=== PATIENT | male | born 1970 | race Caucasian/White ===

== ENCOUNTER 2017-04-24 16:29 | Inpatient (IN) ==
[2017-04-24] MEDS ORDERED: LACTATED RINGERS 1,000 ML IV ONE (16:43)
[2017-04-24 17:19] LABS: Mean Cell Volume 88.5 fL (80.0-100.0); Mean Corpuscular HGB Conc 34.2 g/dL (31.0-36.0); Mean Corpuscular Hemoglobin 30.2 pg (26.0-34.0); Platelet Count 528 K/mcL (140-440); RBC 4.29 M/mcL (4.50-5.90); Red Cell Distribution Width 12.5 % (11.5-14.5)
--- NOTE | 2017-04-24 17:27 | Emergency Department Note ---
Fever HPI - General Chief Complaint: Fever Stated Complaint: Back pain, Fever Time Seen by Provider: 04/24/17 16:42 Source: patient, family, EMS Mode of arrival: EMS Limitations: no limitations, physical limitation - History of Present Illness HPI Narrative: This 46-year-old gentleman is brought in by ambulance and they were called out for a "sick call". When he arrived he stated that he was not able to feel his legs and he does have a history of low back pain, bulging disks but he is not considered an operative candidate. He has been doctoring with Dr. Shaw, he is on a pain contract with her and they have been slowly trying to get him off of pain medications but just in the last few days he's had cold-like symptoms with a cough, nonproductive and today he ran a high fever and his called the ambulance. He has a very bizarre affect and when he is touched anywhere he yells out in pain. A few times he started hyperventilating and then lapsing into an obtunded state which he came out of in a few seconds and his status states that he does do this when he is uncomfortable. Apparently he is on disability for low back pain and medical issues. Main complaint today is fever, worsening of his low back pain and cough. MD complaint: fever - Related Data Home Medications Medication Instructions Recorded Confirmed Aspirin [Kathi Chewable Aspirin] 81 mg PO DAILY 03/28/16 04/24/17 Atorvastatin [Lipitor] 10 mg PO HS 03/28/16 04/24/17 Cyclobenzaprine [Flexeril] 10 mg PO TID 03/28/16 04/24/17 Empagliflozin/Linagliptin 1 each PO DAILY 03/28/16 04/24/17 [Glyxambi 25 mg-5 mg Tablet] Fenofibrate [Lofibra] 160 mg PO DAILY 03/28/16 04/24/17 LORazepam [Ativan] 1 mg PO Q6HP PRN 03/28/16 04/24/17 Levothyroxine [Synthroid] 100 mcg PO DAILY 03/28/16 04/24/17 Methadone [Dolophine] 5 mg PO Q4 PRN 03/28/16 04/24/17 Methocarbamol [Robaxin] 500 mg PO TIDP PRN 03/28/16 04/24/17 Sertraline [Zoloft] 200 mg PO DAILY 03/28/16 04/24/17 oxyCODONE [OxyCONTIN] 5 mg PO Q6HP PRN 03/28/16 04/24/17 Allergies Allergy/AdvReac Type Severity Reaction Status Date / Time haloperidol AdvReac Severe Acute Verified 04/24/17 16:39 renal failure Review of Systems Limitations: ROS unobtainable due to patients medical condition Constitutional: Reports: fever, chills, weakness, night sweats Eyes: Denies: eye pain ENT ED: Denies: ear pain, throat pain Cardiovascular: Denies: chest pain Fever PMH - Past Medical History Attestation: Yes: The following information was validated with the patient. Medical history: Reports: diabetes, fibromyalgia, hyperlipidemia, thyroid disease, other (chronic low back pain) Surgical history ED: Reports: non-contributory Psychiatric history: Reports: anxiety, depression Family history: Reports: non-contributory - Social History smoking status: Current every day smoker Alcohol use: Reports: None Drug use: Reports: none Physical Exam - General Limitations: no limitations, physical limitation General appearance: alert, anxious, in distress - Head Head exam: atraumatic, normocephalic - Eye Eye exam: Present: normal appearance, PERRL, EOMI. Absent: conjunctival injection - ENT ENT exam: normal exam, normal oropharynx, mucous membranes moist, other ( Edentulous upper and lower) - Neck Neck exam: Present: normal inspection, full ROM. Absent: tenderness, meningismus - Chest Chest inspection: Present: normal inspection, symmetric chest wall rise, tenderness. Absent: abscess - Respiratory Respiratory exam: Present: normal lung sounds bilaterally. Absent: respiratory distress, wheezes - Cardiovascular Cardiovascular exam: Present: regular rate, normal heart sounds - Abdominal Exam Abdominal exam: Present: soft, normal bowel sounds. Absent: distention, tenderness - Extremities Exam Extremities exam: Present: other (Patient has his knees drawn up, we will extend his legs. Tender with any movement of his ,upper extremities and lower extremities.) - Back Exam Back exam: Present: CVA tenderness (R), CVA tenderness (L), paraspinal tenderness. Absent: vertebral tenderness - Neurological Exam Neurological exam: Present: alert, oriented X3, CN II-XII intact, motor sensory deficit, reflexes normal (nable to test reflexes, he does have s lowdoes have sensation to his lower le, appears symmetrical.) - Psychiatric Psychiatric exam: Present: agitated, anxious - Skin Skin exam: Present: warm, dry, diaphoresis Course Vital Signs Temperature 102.3 F H 04/24/17 16:31 Pulse Rate 76 04/24/17 16:31 Respiratory Rate 18 04/24/17 16:31 Blood Pressure 135/76 04/24/17 16:31 Pulse Oximetry (%) 100 04/24/17 16:31 Temperature 99.5 F H 04/24/17 18:48 Pulse Rate 65 04/24/17 17:31 Respiratory Rate 13 04/24/17 17:47 Blood Pressure 138/74 04/24/17 17:47 Pulse Oximetry (%) 99 04/24/17 17:31 Fever - MDM Narrative Medical decision making narrative: Pain was better after pain medication administration, chest x-ray showing bilateral pneumonia. Discussed hospital observation/admission with Dr. Beauchmap. He does state his back pain is improved, he is moving both lower extremities appropriately but does have musculoskeletal back pain. - Lab Data Result diagrams: 04/24/17 16:54 04/24/17 16:54 Lab Results 04/24/17 04/24/17 04/24/17 Range/Units 16:54 16:54 16:54 WBC 17.7 H (4.5-11.0) K/mcL RBC 4.29 L (4.50-5.90) M/mcL Hgb 13.0 L (13.5-16.5) g/dL Hct 37.9 L (41.0-55.0) % MCV 88.5 (80.0-100.0) fL MCH 30.2 (26.0-34.0) pg MCHC 34.2 (31.0-36.0) g/dL RDW 12.5 (11.5-14.5) % Plt Count 528 H (140-440) K/mcL MPV 7.5 (7.4-10.4) fL Total Counted 100 Seg Neutrophils % 74 (38-78) % Band Neutrophils % Not Reportable Lymphocytes % 20 (15-49) % Monocytes % (Manual) 5 (1-12) % Eosinophils % (Manual) 1 (0-7) % Platelet Estimate Increased A (NORMAL) RBC Morphology Normal (NORMAL) VBG Lactic Acid 2.2 (0.5-2.2) mmol/L Sodium 140 (133-145) mmol/L Potassium 4.2 (3.3-5.1) mmol/L Chloride 100 (96-108) mmol/L Carbon Dioxide 20 L (22-30) mmol/L Anion Gap 20.0 H (8-16) BUN 13 (6-20) mg/dl Creatinine 0.8 (0.7-1.2) mg/dl GFR Calculation 106 Glucose 116 H (70-105) mg/dL Calcium 9.4 (8.6-10.4) mg/dl Total Bilirubin 0.2 (0.0-1.0) mg/dL AST 26 (0-37) U/l ALT 20 (0-40) U/l Alkaline Phosphatase 52 (39-117) U/L C-Reactive Protein (0.0-0.8) mg/dl Total Protein 7.5 (5.9-8.4) gm/dL Albumin 3.9 (3.2-5.2) gm/dL Globulin 3.6 (2.2-3.7) gm/dL Albumin/Globulin Ratio 1.1 (1.0-2.3) Urine Color Urine Appearance Urine pH (5.0-9.0) Ur Specific [place] (1.000-1.035) Urine Protein (NEG) mg/dL Urine Glucose (UA) (NEG) mg/dL Urine Ketones (NEG) mg/dL Urine Occult Blood (<0.03) mg/dL Urine Nitrate (NEG) Urine Bilirubin (NEG) mg/dL Urine Urobilinogen (NEG) mg/dL Ur Leukocyte Esterase (NEG) /uL Urine RBC (0-1) /hpf Urine WBC (0-4) /hpf Ur Squamous Epith Cells (0-4) /hpf Urine Bacteria (0) /hpf Urine Mucus (0) /hpf Urine Sperm (ABSENT) /hpf Ur Culture Indicated? 04/24/17 04/24/17 Range/Units 16:54 17:51 WBC (4.5-11.0) K/mcL RBC (4.50-5.90) M/mcL Hgb (13.5-16.5) g/dL Hct (41.0-55.0) % MCV (80.0-100.0) fL MCH (26.0-34.0) pg MCHC (31.0-36.0) g/dL RDW (11.5-14.5) % Plt Count (140-440) K/mcL MPV (7.4-10.4) fL Total Counted Seg Neutrophils % (38-78) % Band Neutrophils % Lymphocytes % (15-49) % Monocytes % (Manual) (1-12) % Eosinophils % (Manual) (0-7) % Platelet Estimate (NORMAL) RBC Morphology (NORMAL) VBG Lactic Acid (0.5-2.2) mmol/L Sodium (133-145) mmol/L Potassium (3.3-5.1) mmol/L Chloride (96-108) mmol/L Carbon Dioxide (22-30) mmol/L Anion Gap (8-16) BUN (6-20) mg/dl Creatinine (0.7-1.2) mg/dl GFR Calculation Glucose (70-105) mg/dL Calcium (8.6-10.4) mg/dl Total Bilirubin (0.0-1.0) mg/dL AST (0-37) U/l ALT (0-40) U/l Alkaline Phosphatase (39-117) U/L C-Reactive Protein 12.4 H (0.0-0.8) mg/dl Total Protein (5.9-8.4) gm/dL Albumin (3.2-5.2) gm/dL Globulin (2.2-3.7) gm/dL Albumin/Globulin Ratio (1.0-2.3) Urine Color Yellow Urine Appearance Clear Urine pH 9.0 (5.0-9.0) Ur Specific [place] 1.014 (1.000-1.035) Urine Protein Neg (NEG) mg/dL Urine Glucose (UA) >=500 A (NEG) mg/dL Urine Ketones 5/tr A (NEG) mg/dL Urine Occult Blood Neg (<0.03) mg/dL Urine Nitrate Neg (NEG) Urine Bilirubin Neg (NEG) mg/dL Urine Urobilinogen 2.0 A (NEG) mg/dL Ur Leukocyte Esterase Neg (NEG) /uL Urine RBC 0 (0-1) /hpf Urine WBC < 1 (0-4) /hpf Ur Squamous Epith Cells 0 (0-4) /hpf Urine Bacteria 0 (0) /hpf Urine Mucus Few (0) /hpf Urine Sperm Present A (ABSENT) /hpf Ur Culture Indicated? No Disposition Pt seen by BRAID CUTTER/PA only: No Clinical Impression: Pneumonia Condition: Fair Referrals: Precious Shaw MD [Primary Care Provider] -
[2017-04-24] MEDS ORDERED: IBUPROFEN 600 MG TABLET PO ONE (17:32)
[2017-04-24] MEDS ORDERED: METHOCARBAMOL 1,000 MG/10 ML VIAL IV ONE (17:32)
[2017-04-24] MEDS ORDERED: ONDANSETRON 4 MG/2 ML VIAL IV ONE ×2 (17:33→19:12)
[2017-04-24 17:42] LABS: Eosinophils % (Manual) 1 % (0-7); Lymphocytes % 20 % (15-49); Monocytes % (Manual) 5 % (1-12); Platelet Estimate INCREASED (NORMAL); RBC Morphology NORMAL (NORMAL); Segmented Neutrophils % 74 % (38-78)
[2017-04-24 17:46] LABS: ALT/SGPT 20 U/l (0-40); Albumin 3.9 gm/dL (3.2-5.2); Albumin/Globulin Ratio 1.1 (1.0-2.3); Alkaline Phosphatase 52 U/L (39-117); Blood Urea Nitrogen 13 mg/dl (6-20)
[2017-04-24 18:18] LABS: Appearance,Urine CLEAR; Bacteria,Urine 0 /hpf (0); Bilirubin,Urine NEG (NEG); Color,Urine YELLOW; Glucose,Urine (UA) >=500 mg/dL (NEG); Leukocyte Esterase,Urine NEG /uL (NEG); Mucus,Urine FEW /hpf (0); Nitrate,Urine NEG (NEG); Protein,Urine NEG (NEG); Specific Gravity,Urine 1.014 (1.000-1.035); Sperm,Urine PRESENT /hpf (ABSENT); Urine Blood NEG mg/dL (<0.03); Urine RBC 0 /hpf (0-1); Urine Squamous Epithelial Cell 0 /hpf (0-4); Urine WBC < 1 /hpf (0-4)
[2017-04-24] MEDS: HYDROmorphone 2 MG/ML SYRINGE IV PRN ×3 (18:20→22:23)
--- NOTE | 2017-04-24 18:21 | XRay Report ---
HISTORY: Reason for Exam:cough , fever and pain radiating to the back FINDINGS: Patient has bilateral pneumonia with the greatest involvement located centrally in the right lung. There is mild involvement central in the left lung. No pleural effusion is present and there is no apparent adenopathy. The heart size is normal. The pneumonia is a new finding since 06/27/09. IMPRESSION: Bilateral pneumonia Interpreted and Authenticated by: Jagdish Pham 04/24/17
[2017-04-24] MEDS ORDERED: cefTRIAXone 1 GM in DEXTROSE 5% IN WATER 50 ML IV ONE (19:11)
[2017-04-24] MEDS ORDERED: AZITHROMYCIN 500 MG in DEXTROSE 5% IN WATER 250 ML IV ONE (19:11)
[2017-04-24] MEDS ORDERED: LORazepam 1 MG TABLET PO PRN ×2 (20:22→21:21)
[2017-04-24] MEDS ORDERED: METHOCARBAMOL 500 MG TABLET PO PRN (20:22)
[2017-04-24] MEDS ORDERED: METHADONE 5 MG TABLET PO PRN (20:22)
[2017-04-24] MEDS ORDERED: oxyCODONE HCL 5 MG TABLET PO PRN (20:45)
[2017-04-24] MEDS ORDERED: CYCLOBENZAPRINE 10 MG TABLET PO SCH (21:00)
[2017-04-24] MEDS ORDERED: ATORVASTATIN 20 MG TABLET PO SCH (21:00)
--- NOTE | 2017-04-24 21:14 | Internal Med History&Physical ---
Medical - H&P: HPI Patient information: Note initiated : 04/24/17 at 9:06 pm Service Date, if different from initiated Date: [] Patient: Guanako Rothman a 46 y/o M admitted on for Back pain, Fever. Chief Complaint: [] History of present illness: Mr. Rothman is a 46 year old Male with h/o dm, htn, hld, chr back pain, presented to the ER with complaints of not feeling well x 7-10 days. The patient recently had a in the family. He was more withdrawn than usual. He reports that approximately a week ago he started to have weakness, fever and chills associated with rigors and sweating. This has been getting worse over the period, he has been taking otc meds for same with some what intermittent relief. The patient over last few days also has developed cough with clear sputum, and increased malaise and increased pain overall. Since yesterday he was getting worse with worsening symptoms, nausea and vomiting. He had significant pain, weakness in lower extermities and therefore came to the ER today The patient also repots some headache, worsening chr back pain, and poor appetite IN the ER on presentation he was febrile to 102, hr 94, bp 131/72, oxygen sat 99 on RA CXR showed bilateral pneumonia, WBC count was elevated at 17K crp elevated 12.4, lactic acid 2.2, ua with elevated glucose adn trace ketones. The patient was therefore admitted to the hospital for furtgher management. All systems: reviewed and no additional remarkable complaints except as stated ( as per hpi) Medical - H&P: PMH Medical history: DM HTN HLD chr pain gall stone pancreatitis DM neuropathy Surgical history: cholecystectomy Family history: reviewed and not pertinent Social history: smoker no etoh no recreational drugs lives with Medical - H&P: Meds Home Medications Medication Instructions Recorded Confirmed Type Aspirin [Kathi Chewable Aspirin] 81 mg PO DAILY 03/28/16 04/24/17 History Atorvastatin [Lipitor] 10 mg PO HS 03/28/16 04/24/17 History Cyclobenzaprine [Flexeril] 10 mg PO TID 03/28/16 04/24/17 History Empagliflozin/Linagliptin 1 each PO DAILY 03/28/16 04/24/17 History [Glyxambi 25 mg-5 mg Tablet] Fenofibrate [Lofibra] 160 mg PO DAILY 03/28/16 04/24/17 History LORazepam [Ativan] 1 mg PO Q6HP PRN 03/28/16 04/24/17 History Levothyroxine [Synthroid] 100 mcg PO DAILY 03/28/16 04/24/17 History Methadone [Dolophine] 5 mg PO Q4 PRN 03/28/16 04/24/17 History Methocarbamol [Robaxin] 500 mg PO TIDP PRN 03/28/16 04/24/17 History Sertraline [Zoloft] 200 mg PO DAILY 03/28/16 04/24/17 History oxyCODONE [OxyCONTIN] 5 mg PO Q6HP PRN 03/28/16 04/24/17 History Allergies Allergy/AdvReac Type Severity Reaction Status Date / Time haloperidol AdvReac Severe Acute Verified 04/24/17 16:39 renal failure Medical - H&P: Exam - Constitutional Vitals: Temp Pulse Resp BP Pulse Ox 99.5 F H 78 15 118/71 94 04/24/17 18:48 04/24/17 21:01 04/24/17 21:01 04/24/17 21:01 04/24/17 21:01 Exam: GENERAL: The patient is a well-developed, well-nourished in mild apparent distress. Is alert and oriented x3. VITAL SIGNS: Reviewed and as noted elsewhere. HEENT: Head is normocephalic and atraumatic. Extraocular muscles are intact. Pupils are equal, round, and reactive to light. Nares appeared normal. Mouth appears any without lesions. Mucous membranes are dry NECK: Normal to inspection, Supple, No lymphadenopathy or thyromegaly. LUNGS: Air entry equal on both sides, no wheezing, crackles or rhonchi noted. No accessory muscles of respiration HEART: Regular rate and rhythm normal, S1 and S2 heard, no Gallop, S3 or Rub Noted, No Gross murmur heard. ABDOMEN: Soft, nontender, and nondistended. Positive bowel sounds. No hepatosplenomegaly was noted. EXTREMITIES: No cyanosis, clubbing, rash, lesions or edema. NEUROLOGIC: Cranial nerves II through XII are grossly intact. Motor and Sensory System Grossly Intact PSYCHIATRIC: some what agitated SKIN: No ulceration or wounds noted, No jaundice, No rash noted. Medical - H&P: Reslt - Labs CBC & Chem 7: 04/24/17 16:54 04/24/17 16:54 Labs: Short CBC 04/24/17 Range/Units 16:54 WBC 17.7 H (4.5-11.0) K/mcL Hgb 13.0 L (13.5-16.5) g/dL Hct 37.9 L (41.0-55.0) % Plt Count 528 H (140-440) K/mcL BMP 04/24/17 16:54 Sodium 140 Potassium 4.2 Chloride 100 Carbon Dioxide 20 L BUN 13 Creatinine 0.8 Glucose 116 H Calcium 9.4 Liver Function 04/24/17 Range/Units 16:54 Total Bilirubin 0.2 (0.0-1.0) mg/dL AST 26 (0-37) U/l ALT 20 (0-40) U/l Alkaline Phosphatase 52 (39-117) U/L Albumin 3.9 (3.2-5.2) gm/dL Urine 04/24/17 Range/Units 17:51 Urine Color Yellow Urine Appearance Clear Urine pH 9.0 (5.0-9.0) Ur Specific [place] 1.014 (1.000-1.035) Urine Protein Neg (NEG) mg/dL Urine Glucose (UA) >=500 A (NEG) mg/dL Medical - H&P: A/P (1) Pneumonia Current visit: Yes Status: Acute - Narrative A/P Narrative: A/P Community Acquired Pneumonia: iv rocephin and iv zithromax, mari pna on cxr , cultuers sent, check influenza, mycoplasma and urine legionella. Sepsis: due to pna, but lactic is nromal range, bp stable, hr stable, on room air, IV Fluids and IV antibiotics for now. DM Sliding scale insulin for now. HTN: monitor bp meds, resume home meds in AM hold if bp drops HLD: continue statin Chr pain: on pain contract with Dr Shaw, resume home meds, prn dilaudid IV Anxiety: resume home meds , or lorazepam and zoloft DVT: heparin sq Diet carb consistent. Full code
[2017-04-24] MEDS ORDERED: ONDANSETRON 4 MG/2 ML VIAL IV PRN (21:21)
[2017-04-24] MEDS ORDERED: NALOXONE HCL 0.4 MG/ML VIAL IV PRN (21:21)
[2017-04-24] MEDS ORDERED: HYDROmorphone 2 MG/ML SYRINGE IV PRN (21:21)
[2017-04-24] MEDS ORDERED: cefTRIAXone 2 GM in DEXTROSE 5% IN WATER 50 ML IV SCH (21:21)
[2017-04-24] MEDS ORDERED: DEXTROSE 50% 50 ML VIAL IV PRN (21:21)
[2017-04-24] MEDS ORDERED: DEXTROSE 31 GM ORAL.SUSP PO PRN (21:21)
[2017-04-24] MEDS ORDERED: ALBUTEROL SULFATE 2.5 MG/3 ML NEBULIZER NEB PRN (21:21)
[2017-04-24] MEDS ORDERED: cefTRIAXone 1 GM VIAL ONE (22:07)
[2017-04-24] MEDS: METHOCARBAMOL 500 MG TABLET PO PRN (22:22)
[2017-04-24] MEDS: oxyCODONE HCL 5 MG TABLET PO PRN (22:22)
[2017-04-24] MEDS: METHADONE 5 MG TABLET PO PRN (22:22)
[2017-04-24] MEDS: 0.9 % SODIUM CHLORIDE 1,000 ML IV SCH (22:24)
[2017-04-24] MEDS: HEPARIN 5,000 UNIT/ML VIAL SQ SCH (23:10)
[2017-04-24] MEDS: 0.9 % SODIUM CHLORIDE 10 ML SYRINGE IV SCH (23:11)
[2017-04-24] MEDS: ATORVASTATIN 20 MG TABLET PO SCH (23:11)
[2017-04-25] MEDS: ACETAMINOPHEN 325 MG TABLET PO PRN ×2 (02:46→14:06)
[2017-04-25] MEDS: HYDROmorphone 2 MG/ML SYRINGE IV PRN ×6 (02:46→23:08)
[2017-04-25] MEDS: oxyCODONE HCL 5 MG TABLET PO PRN ×4 (04:15→23:24)
[2017-04-25] MEDS: METHADONE 5 MG TABLET PO PRN ×2 (04:16→08:25)
[2017-04-25] MEDS: 0.9 % SODIUM CHLORIDE 10 ML SYRINGE IV SCH ×2 (05:57→13:42)
[2017-04-25 06:33] LABS: Basophils # (Auto) 0 K/mcL (0.0-0.3); Basophils % (Auto) 0.2 % (0.0-2.0); Eosinophils # (Auto) 0.1 K/mcL (0.0-0.7); Eosinophils % (Auto) 0.7 % (0.0-7.0); Granulocytes % (Auto) 77.3 % (38.0-78.0); Lymphocytes # (Auto) 3.2 K/mcL (1.5-4.8); Lymphocytes % (Auto) 16.5 % (15.5-49.0); Mean Cell Volume 89.5 fL (80.0-100.0); Mean Corpuscular HGB Conc 34.4 g/dL (31.0-36.0); Mean Corpuscular Hemoglobin 30.7 pg (26.0-34.0); Monocytes % (Auto) 5.3 % (1.0-12.0); Platelet Count 394 K/mcL (140-440); RBC 3.53 M/mcL (4.50-5.90); Red Cell Distribution Width 12.8 % (11.5-14.5)
[2017-04-25 06:57] LABS: ALT/SGPT 15 U/l (0-40); Albumin 3.1 gm/dL (3.2-5.2); Albumin/Globulin Ratio 1.1 (1.0-2.3); Alkaline Phosphatase 45 U/L (39-117); Bilirubin,Direct < 0.2 mg/dL (0.0-0.3); Blood Urea Nitrogen 13 mg/dl (6-20); Gamma Glutamyl Transpeptidase 27 U/L (8-61); Magnesium 1.9 mg/dL (1.6-2.5)
[2017-04-25] MEDS: INSULIN LISPRO 1 UNIT/0.01 ML UNIT SQ SCH ×4 (07:04→20:20)
[2017-04-25] MEDS: LEVOTHYROXINE 100 MCG TABLET PO SCH ×2 (07:11→07:14)
[2017-04-25] MEDS ORDERED: LEVOTHYROXINE 100 MCG TABLET PO SCH (07:30)
[2017-04-25] MEDS: CYCLOBENZAPRINE 10 MG TABLET PO SCH ×3 (08:24→20:17)
[2017-04-25] MEDS: HEPARIN 5,000 UNIT/ML VIAL SQ SCH ×2 (08:26→20:20)
[2017-04-25] MEDS: 0.9 % SODIUM CHLORIDE 1,000 ML IV SCH ×3 (08:29→19:43)
[2017-04-25] MEDS ORDERED: ASPIRIN 81 MG TAB.CHEW PO SCH ×2 (09:00→21:00)
[2017-04-25] MEDS ORDERED: SERTRALINE 50 MG TABLET PO SCH ×2 (09:00→21:00)
[2017-04-25] MEDS ORDERED: FENOFIBRATE 43 MG CAPSULE PO SCH ×2 (09:00→21:00)
[2017-04-25] MEDS: METHOCARBAMOL 500 MG TABLET PO PRN ×2 (09:18→17:44)
[2017-04-25] MEDS: METHADONE 5 MG TABLET PO SCH ×3 (11:58→20:15)
[2017-04-25] MEDS: cefTRIAXone 2 GM in DEXTROSE 5% IN WATER 50 ML IV SCH (11:58)
[2017-04-25] MEDS: AZITHROMYCIN 250 MG in DEXTROSE 5% IN WATER 250 ML IV SCH (12:38)
--- NOTE | 2017-04-25 13:32 | Internal Med Progress Note ---
Medical - PN: Subj Patient information: Note initiated : 04/25/17 at 1:30 pm Service Date, if different from initiated Date: [] Patient: Guanako Rothman a 46 y/o M admitted on 04/24/17 for Back Pain, Fever/ Pneumonia, Sepsis. Chief Complaint: [] Interval history: Mr. Rothman is a 46 year old Male with h/o dm, htn, hld, chr back pain, presented to the ER with complaints of not feeling well x 7-10 days. The patient recently had a in the family. He was more withdrawn than usual. He reports that approximately a week ago he started to have weakness, fever and chills associated with rigors and sweating. This has been getting worse over the period, he has been taking otc meds for same with some what intermittent relief. The patient over last few days also has developed cough with clear sputum, and increased malaise and increased pain overall. Since yesterday he was getting worse with worsening symptoms, nausea and vomiting. He had significant pain, weakness in lower extermities and therefore came to the ER today The patient also repots some headache, worsening chr back pain, and poor appetite IN the ER on presentation he was febrile to 102, hr 94, bp 131/72, oxygen sat 99 on RA CXR showed bilateral pneumonia, WBC count was elevated at 17K crp elevated 12.4, lactic acid 2.2, ua with elevated glucose adn trace ketones. The patient was therefore admitted to the hospital for furtgher management. 02/23: Patient seen examined, by the bed side, he wants to go home as he feels his pain is not as controlled here as its at home. He is on his home pain medications here and IV dilaudid prn. The patient overall does not feel much better than yesterday, but is afebrile now. his wbc count has trended up today. He remains on rocephin and zithromax for antibiotic coverage. cultures neg so far. He refused sliding scale insulin and wants to take his home oral diabetes medication. Pertinent ROS: Denies headache, dizziness Denies chest pain, palpitations present cough and shortness of breath Denies abdominal pain, nausea or vomiting. - Constitutional Vitals: Vital Signs Temp Pulse Resp BP Pulse Ox 97.1 F 81 18 106/69 96 04/25/17 11:01 04/25/17 07:20 04/25/17 11:01 04/25/17 11:01 04/25/17 11:01 Period Temp Pulse Resp BP Sys/Liao Pulse Ox Last 24 Hr 96.5 F-102.3 F 65-81 10-22 93-148/53-79 94-100 Intake and Output 04/24/17 04/25/17 04/25/17 21:59 05:59 13:59 Intake Total 1300 / 1300 400 / 400 1480 / 1480 Output Total 475 / 475 Balance 1300 / 1300 400 / 400 1005 / 1005 Weight 168 lb Intake & Output: Intake & Output 04/24/17 04/25/17 04/25/17 21:59 05:59 13:59 Intake Total 1300 / 1300 400 / 400 1480 / 1480 Output Total 475 / 475 Balance 1300 / 1300 400 / 400 1005 / 1005 Weight 168 lb Intake: IV 1300 / 1300 1000 / 1000 Sodium Chloride 0.9% 1,000 ml @ 1000 / 1000 100 mls/hr IV .Q10H [facility] Rx#: [id number] Zithromax 500 mg In Dextrose 5% 250 / 250 in Water 250 ml @ 250 mls/hr IV ONCE ONE Rx#:[id number] Lactated Ringers 1,000 ml @ 1000 / 1000 Wide Open IV BOLUS ONE Rx#: [id number] Rocephin 1 gm In Dextrose 5% in 50 / 50 Water 50 ml @ 100 mls/hr IV ONCE ONE Rx#:[id number] Oral 400 / 400 480 / 480 Output: Void Amount 475 / 475 Other: Meal sandwich, cheese sticks Lunch Percent of Meal Consumed 100% 100% Feeding Ability Independent Independent # Voids 2 Exam: Constitutional; Afebrile, cooperative, alert, not in distress. Eyes- No icterus, , No periorbital swelling Ears- Ext ear normal, hearing normal to conversation. Neck- Midline trachea, supple Respiratory system: Air Entry equal on both sides, No crackles or wheezing, no rhonchi. CVS- Rate rhythm regular, S1,S2 heard, no gallop, no rub. Abdomen- Soft nontender abdomen, no organomegaly, no tenderness, no guarding or rigidity, [employer] ADDED ASSESSOR- AOOx3, moving all extremities, no gross focal deficit noted. Medical - PN: Obj Da - Labs CBC & Chem 7: 04/25/17 04:20 04/25/17 04:20 Labs: Abnormal Lab Results 04/25/17 04/25/17 04/24/17 04:20 04:20 17:51 WBC 19.5 H RBC 3.53 L Hgb 10.9 L Hct 31.6 L Plt Count Gran # 15.1 H [place] # (Auto) 1.0 H Platelet Estimate Carbon Dioxide 21 L Anion Gap Creatinine 0.6 L Glucose 108 H Calcium 8.4 L Lactate Dehydrogenase 374 H C-Reactive Protein Albumin 3.1 L Triglycerides 184 H Urine Glucose (UA) >=500 A Urine Ketones 5/tr A Urine Urobilinogen 2.0 A Urine Sperm Present A 04/24/17 04/24/17 04/24/17 16:54 16:54 16:54 WBC 17.7 H RBC 4.29 L Hgb 13.0 L Hct 37.9 L Plt Count 528 H Gran # [place] # (Auto) Platelet Estimate Increased A Carbon Dioxide 20 L Anion Gap 20.0 H Creatinine Glucose 116 H Calcium Lactate Dehydrogenase C-Reactive Protein 12.4 H Albumin Triglycerides Urine Glucose (UA) Urine Ketones Urine Urobilinogen Urine Sperm Meds: Medications Acetaminophen (Tylenol) 650 mg PO Q6HP PRN PRN Reason: PAIN/FEVER > 101 Last Admin: 04/25/17 02:46 Dose: 650 mg Albuterol Sulfate (Ventolin) 2.5 mg NEB Q2HP PRN PRN Reason: Shortness Of Breath Aspirin (Aspirin) 81 mg PO HS [facility] Atorvastatin Calcium (Lipitor) 10 mg PO HS [facility] Last Admin: 04/24/17 23:11 Dose: Not Given Cyclobenzaprine HCl (Flexeril) 10 mg PO TID [facility] Last Admin: 04/25/17 08:24 Dose: 10 mg Dextrose (Dextrose 50%) 0 ml IV UD PRN PRN Reason: Hypoglycemia Diagnostic Test (Pha) (Accu-Chek) 1 each FS ACHS [facility] Last Admin: 04/25/17 11:05 Dose: 1 each Fenofibrate (Antara) 129 mg PO HS [facility] Glucose (Insta-Glucose) 15 gm PO PRN PRN PRN Reason: Hypoglycemia Heparin Sodium (Porcine) (Heparin) 5,000 unit SQ Q12 [facility] Last Admin: 04/25/17 08:26 Dose: Not Given Hydromorphone HCl (Dilaudid) 0.5 mg IV Q1HP PRN PRN Reason: Pain Last Admin: 04/25/17 09:18 Dose: 0.5 mg Hydromorphone HCl (Dilaudid) 0.5 mg IV Q2HP PRN PRN Reason: Pain Sodium Chloride (Sodium Chloride 0.9%) 1,000 mls @ 100 mls/hr IV .Q10H [facility] Stop: 04/26/17 03:20 Last Admin: 04/25/17 08:29 Dose: 100 mls/hr Ceftriaxone Sodium 2 gm/ (Dextrose) 50 mls @ 100 mls/hr IV Q24H [facility] Last Admin: 04/25/17 11:58 Dose: 100 mls/hr Azithromycin 250 mg/ Dextrose 250 mls @ 250 mls/hr IV Q24H [facility] Stop: 04/28/17 13:59 Last Admin: 04/25/17 12:38 Dose: 250 mls/hr Insulin Human Lispro (Humalog) 0 unit SQ ACHS [facility] PRN Reason: Protocol Last Admin: 04/25/17 11:06 Dose: Not Given Levothyroxine Sodium (Synthroid) 100 mcg PO QAMAC [facility] Last Admin: 04/25/17 07:14 Dose: Not Given Lorazepam (Ativan) 1 mg PO Q6HP PRN PRN Reason: Anxiety Methadone HCl (Dolophine) 5 mg PO Q4 [facility] Last Admin: 04/25/17 11:58 Dose: 5 mg Methocarbamol (Robaxin) 500 mg PO TIDP PRN PRN Reason: Pain Last Admin: 04/25/17 09:18 Dose: 500 mg Naloxone HCl (Narcan) 0.1 mg IV Q2MIN PRN PRN Reason: Opiate Reversal Ondansetron HCl (Zofran) 4 mg IV Q6HP PRN PRN Reason: Nausea And Vomiting Oxycodone HCl (Roxicodone) 5 mg PO Q6HP PRN PRN Reason: Pain Last Admin: 04/25/17 11:02 Dose: 5 mg Empagliflozin/Linagliptin [ Glyxambi 25 Mg-5 Mg Tab 1 dose PO HS [facility] Sertraline HCl (Zoloft) 200 mg PO HS [facility] Sodium Chloride (Saline Flush) 10 ml IV Q8 [facility] Last Admin: 04/25/17 05:57 Dose: Not Given Medical - PN: A/P - Time Spent With Patient Total time spent is greater than 50% in coordination of care (as documented) at patient's floor/unit and/or counseling patient: (1) Pneumonia Status: Acute Current Visit: Yes - Narrative A/P Narrative: A/P Community Acquired Pneumonia: iv rocephin and iv zithromax, mari pna on cxr , cultuers sent, flu neg, mycoplasma neg, legionella pending. Sepsis: improving, bp low normal ,lactate normal, afebrile now, but wbc uptrending. DM home oral medication resume, d/c sliding scale at patients request. HTN: monitor bp meds, continue to hold bp medication. HLD: continue statin Chr pain: on pain contract with Dr Shaw, resumed home meds, prn dilaudid IV, will give methoadone q4h scheduled to help manage pain better, oxycodone dilaudid will remain prn. Anxiety: resume home meds , or lorazepam and zoloft DVT: heparin sq Diet carb consistent. Full code Medical - PN: Qual - Stroke Symptom Onset Unknown: No - VTE Deep Vein Thrombosis/Pulmonary Embolism Present on Admission: No
[2017-04-25] MEDS ORDERED: AZITHROMYCIN 250 MG in DEXTROSE 5% IN WATER 250 ML IV SCH (20:15)
[2017-04-25] MEDS: ATORVASTATIN 20 MG TABLET PO SCH (20:17)
[2017-04-25] MEDS ORDERED: LINAGLIPTIN PO SCH (21:00)
[2017-04-25] MEDS ORDERED: EMPAGLIFLOZIN PO SCH (21:00)
[2017-04-26] MEDS: METHOCARBAMOL 500 MG TABLET PO PRN (00:03)
[2017-04-26] MEDS: METHADONE 5 MG TABLET PO SCH ×4 (00:03→12:18)
[2017-04-26] MEDS: 0.9 % SODIUM CHLORIDE 10 ML SYRINGE IV SCH ×2 (00:58→05:47)
[2017-04-26] MEDS: oxyCODONE HCL 5 MG TABLET PO PRN ×2 (05:30→11:19)
[2017-04-26] MEDS: HYDROmorphone 2 MG/ML SYRINGE IV PRN ×4 (05:46→12:22)
[2017-04-26 06:09] LABS: Basophils # (Auto) 0 K/mcL (0.0-0.3); Basophils % (Auto) 0.3 % (0.0-2.0); Eosinophils # (Auto) 0.4 K/mcL (0.0-0.7); Eosinophils % (Auto) 2.6 % (0.0-7.0); Granulocytes % (Auto) 61.4 % (38.0-78.0); Lymphocytes # (Auto) 4.4 K/mcL (1.5-4.8); Lymphocytes % (Auto) 29.6 % (15.5-49.0); Mean Cell Volume 89.8 fL (80.0-100.0); Mean Corpuscular HGB Conc 33.4 g/dL (31.0-36.0); Monocytes # (Auto) 0.9 K/mcL (0.1-0.9); Monocytes % (Auto) 6.1 % (1.0-12.0); Platelet Count 459 K/mcL (140-440); RBC 3.74 M/mcL (4.50-5.90)
[2017-04-26 06:12] LABS: ALT/SGPT 18 U/l (0-40); Albumin 3.1 gm/dL (3.2-5.2); Alkaline Phosphatase 42 U/L (39-117); Bilirubin,Direct < 0.2 mg/dL (0.0-0.3); Blood Urea Nitrogen 11 mg/dl (6-20); Gamma Glutamyl Transpeptidase 30 U/L (8-61); Uric Acid 3.5 mg/dL (2.5-8.0)
[2017-04-26] MEDS: INSULIN LISPRO 1 UNIT/0.01 ML UNIT SQ SCH ×2 (07:59→11:22)
[2017-04-26] MEDS: LEVOTHYROXINE 100 MCG TABLET PO SCH (08:00)
[2017-04-26] MEDS: CYCLOBENZAPRINE 10 MG TABLET PO SCH (08:50)
[2017-04-26] MEDS: cefTRIAXone 2 GM in DEXTROSE 5% IN WATER 50 ML IV SCH (08:50)
[2017-04-26] MEDS: HEPARIN 5,000 UNIT/ML VIAL SQ SCH (09:01)
[2017-04-26] MEDS: AZITHROMYCIN 250 MG in DEXTROSE 5% IN WATER 250 ML IV SCH (10:04)
--- NOTE | 2017-04-26 12:29 | Discharge Summary ---
Medical - DS: Prov Patient information: Note initiated : 04/26/17 at 12:23 pm Service Date, if different from initiated Date: [] Patient: Guanako Rothman 46 y/o M admitted on 04/24/17 for Back Pain, Fever/ Pneumonia, Sepsis. Chief Complaint: [] Date of admission: 04/24/17 21:16 Discharge date: 04/26/17 Primary care physician: Precious Shaw Admitting clinician: Albert Huitron Consults: 04/24/17 20:06 Consult to Physician [CONS] Stat Comment: Consulting Provider: Albert Huitron Reason For Exam: Physician to Consult Discharging clinician: Albert Huitron Medical - DS: Meds - Discharge Medications Prescriptions: Azithromycin 250 mg PO DAILY #3 tab Cefuroxime [Ceftin] 500 mg PO Q12 #10 tab Active and Home Medications: Home Medications Aspirin [Kathi Chewable Aspirin] 81 mg PO DAILY 03/28/16 [History Confirmed 10/06 Last Taken 03/27/16 08:00] Cyclobenzaprine [Flexeril] 10 mg PO TID 03/28/16 [History Confirmed 04/24/17 Last Taken 03/27/16 21:00] Empagliflozin/Linagliptin [Glyxambi 25 mg-5 mg Tablet] 1 each PO DAILY 03/28/16 [History Confirmed 04/24/17 Last Taken 03/27/16 08:00] Fenofibrate [Lofibra] 160 mg PO DAILY 03/28/16 [History Confirmed 04/24/17 Last Taken 03/27/16 08:00] LORazepam [Ativan] 1 mg PO Q6HP PRN 03/28/16 [History Confirmed 04/24/17 Last Taken 02/07/16 10:00] Levothyroxine [Synthroid] 100 mcg PO DAILY 03/28/16 [History Confirmed 04/24/17 Last Taken 03/27/16 08:00] Methadone [Dolophine] 5 mg PO Q4 PRN 03/28/16 [History Confirmed 04/24/17 Last Taken 03/27/16 21:00] Methocarbamol [Robaxin] 500 mg PO TIDP PRN 03/28/16 [History Confirmed 04/24/17 Last Taken 03/27/16 21:00] Sertraline [Zoloft] 200 mg PO DAILY 03/28/16 [History Confirmed 04/24/17 Last Taken 03/27/16 08:00] oxyCODONE [OxyCONTIN] 5 mg PO Q6HP PRN 03/28/16 [History Confirmed 04/24/17 Last Taken 03/27/16 21:00] Benazepril [Lotensin] 10 mg PO DAILY 04/24/17 [History Confirmed 04/24/17 Last Taken Unknown] Medical - DS: Hosp Hospital course: Mr. Rothman is a 46 year old Male with h/o dm, htn, hld, chr back pain, presented to the ER with complaints of not feeling well x 7-10 days. The patient recently had a in the family. He was more withdrawn than usual. He reports that approximately a week ago he started to have weakness, fever and chills associated with rigors and sweating. This has been getting worse over the period, he has been taking otc meds for same with some what intermittent relief. The patient over last few days also has developed cough with clear sputum, and increased malaise and increased pain overall. Since yesterday he was getting worse with worsening symptoms, nausea and vomiting. He had significant pain, weakness in lower extremities and therefore came to the ER. The patient also repots some headache, worsening chr back pain, and poor appetite. IN the ER on presentation he was febrile to 102, hr 94, bp 131/72, oxygen sat 99 on RA,CXR showed bilateral pneumonia, WBC count was elevated at 17K crp elevated 12.4, lactic acid 2.2, ua with elevated glucose adn trace ketones. The patient was therefore admitted to the hospital for further management In the hospital he was treated with IV rocephin and zithromax for his pneumonia , he responded to the treatment well, his blood culture were negative, his urine antigen for mycoplasma is negative. LEgionella pending. The patients wbc count today is trending down, he is feeling good and is able to tolerate po diet well. He is stable for discharge, he will be discharged on zithromax and cefuroxime. No changes are being made in his home medication list except short term use of antibiotics. Discharge diagnosis: pneumonia - Time Spent with Patient Total time spent providing and/or coordinating discharge services: Less than 30 minutes Medical - DS: Exam - Constitutional Vitals: Vital Signs Temp Pulse Pulse Resp BP Pulse Ox 04/26/17 11:24 97.7 F 80 12 123/78 95 04/26/17 07:58 73 97 04/26/17 07:53 97.9 F 76 14 131/75 96 04/26/17 04:00 97.8 F 69 16 153/83 94 04/26/17 00:00 98.4 F 79 20 115/74 96 04/25/17 20:00 98.4 F 69 22 129/66 93 04/25/17 15:01 97.1 F 16 108/62 96 04/25/17 14:51 97.1 F 04/25/17 14:06 100.2 F H 04/25/17 14:05 100.2 F H Intake and Output 04/25/17 04/26/17 04/26/17 21:59 05:59 13:59 Intake Total 1480 / 1480 240 / 240 Output Total 275 / 275 Balance 1205 / 1205 240 / 240 Intake: IV 1000 / 1000 Sodium Chloride 0.9% 1,000 ml @ 1000 / 1000 100 mls/hr IV .Q10H BASS[facility] Rx#: [id number] Oral 480 / 480 240 / 240 Output: Void Amount 275 / 275 Other: Percent of Meal Consumed soup # Voids 2 2 2 Weight 168 lb Additional comments: Constitutional; Afebrile, cooperative, alert, not in distress. Eyes- No icterus, , No periorbital swelling Ears- Ext ear normal, hearing normal to conversation. Neck- Midline trachea, supple Respiratory system: Air Entry equal on both sides, No crackles or wheezing, no rhonchi. CVS- Rate rhythm regular, S1,S2 heard, no gallop, no rub. Abdomen- Soft nontender abdomen, no organomegaly, no tenderness, no guarding or rigidity, HEAD OF MERCHANDISE BUYING- AOOx3, moving all extremities, no gross focal deficit noted. Medical - DS: Data Procedures and tests throughout hospitalization: cxr MPRESSION: Bilateral pneumonia Labs on day of discharge: Labs from last 24 hours 04/26/17 04/26/17 04:45 04:45 WBC 14.9 H RBC 3.74 L Hgb 11.2 L Hct 33.6 L MCV 89.8 MCH 30.0 MCHC 33.4 RDW 13.0 Plt Count 459 H MPV 7.0 L Gran % 61.4 Lymph % (Auto) 29.6 Jewell % (Auto) 6.1 Eos % (Auto) 2.6 Baso % (Auto) 0.3 Gran # 9.1 H Lymph # (Auto) 4.4 Jewell # (Auto) 0.9 Eos # (Auto) 0.4 Baso # (Auto) 0 Sodium 142 Potassium 4.0 Chloride 105 Carbon Dioxide 24 Anion Gap 13.0 BUN 11 Creatinine 0.6 L GFR Calculation 120 Glucose 111 H Uric Acid 3.5 Calcium 8.5 L Phosphorus 3.8 Magnesium 2.0 Total Bilirubin 0.2 Direct Bilirubin < 0.2 GGT 30 AST 23 ALT 18 Alkaline Phosphatase 42 Lactate Dehydrogenase 296 H Total Protein 6.2 Albumin 3.1 L Globulin 3.1 Albumin/Globulin Ratio 1.0 Triglycerides 149 Preliminary micro results at discharge 04/24/17 18:15 Blood Culture - Preliminary Blood 04/24/17 16:54 Blood Culture - Preliminary Blood Medical - DS: A/P - Patient/Caregiver Discharge Instructions Activity: increase activity as tolerated Diet: Cardiac, Consistent Carbohydrate Additional Instructions: Take azithromycin for 3 more days Take cefuroxime for 5 more days FOllow up with PCP in 71-14 days Go to ER if worsening symptoms, fever, chest pain or any other concerning symptom. - Problem Maintenance (1) Pneumonia Status: Acute - Follow up Plan Follow up with: Precious Shaw MD [Primary Care Provider] - Disposition: Home, Self-Care Prognosis: Fair Rehab Potential: Fair I certify that the patient requires SNF services: No Overall status at discharge: patient is progressing back to baseline Medical - DS: Qual - VTE Deep Vein Thrombosis/Pulmonary Embolism Present on Admission: No
[2017-04-30 11:29] LABS: Legionella pneumophilia Ag, Ur NOT DETECTED
== END 2017-04-26 13:20 | disposition home or self-care (01) | DRG 871 ==
LOC: ED 16:29 → MEDSUR 21:16
PROVIDERS: ADMIT Internal Medicine; ATTEND Internal Medicine